=== PATIENT | female | born 2000 | race Caucasian/White ===

== ENCOUNTER 2020-12-14 16:45 | Emergency (ER) | payer SELFPAY ==
[2020-12-14 17:33] VITALS: TEMP 98.6; BMI 24.6
[2020-12-14 20:38] LABS: BASO % 0.4 % (0-2.0); EOS % 0.7 % (0-4.5); HEMATOCRIT 41.3 % (32.4-45.2); HEMOGLOBIN 13.9 GM/dL (10.7-15.3); MCH 30.2 pg (25.7-33.7); MCHC 33.5 g/dl (32.0-36.0); MEAN CELL VOLUME 90.1 fl (80-96); MEAN PLT VOLUME 7.5 fl (7.5-11.1); MONO % 6.9 % (3.8-10.2); PLATELET COUNT 394 K/MM3 (134-434); RBC 4.59 M/mm3 (3.60-5.2); RDW 13.7 % (11.6-15.6); WHITE BLOOD COUNT 8.8 K/mm3 (4.0-10.0)
[2020-12-14 20:56] LABS: POTASSIUM 4.2 mmol/L (3.5-5.1)
[2020-12-14 20:58] LABS: CALCIUM 9.4 mg/dL (8.5-10.1)
[2020-12-14 20:59] LABS: ALBUMIN 4.1 g/dl (3.4-5.0); BLOOD UREA NITROGEN 9.1 mg/dL (7-18)
[2020-12-14 21:01] LABS: CREATININE 0.7 mg/dL (0.55-1.3)
[2020-12-14 21:04] LABS: BILIRUBIN,TOTAL 0.4 mg/dL (0.2-1)
[2020-12-14] MEDS ORDERED: KETOROLAC TROMETHAMINE 30 MG/1 ML VIAL IM ONE (21:13)
[2020-12-14] MEDS ORDERED: KETOROLAC TROMETHAMINE 30 MG/1 ML VIAL ONE (22:04)
[2020-12-14 22:21] VITALS: BP 101/58; PULSE 71
[2020-12-14 22:48] LABS: URINE APPEARANCE Clear; URINE BILIRUBIN Negative (NEGATIVE); URINE COLOR Yellow; URINE GLUCOSE (UA) Negative (NEGATIVE); URINE KETONE Trace (NEGATIVE); URINE LEUK ESTERASE Negative (NEGATIVE); URINE NITRITE Negative (NEGATIVE); URINE PROTEIN Negative (NEGATIVE); URINE UROBILINOGEN 0.2 mg/dL (0.2-1.0)
[2020-12-14 23:04] LABS: EPI CELLS 11.3 /uL (0-25.1); HYALINE CASTS 1.28 /uL (0-3.1); URINE BACTERIA 171.9 /uL (0-1359); URINE RBC 193.8 /uL (0-23.9); URINE WBC 10.6 /uL (0-25.8)
== END 2020-12-14 22:20 | disposition home or self-care (01) ==
LOC: JER 16:45
PROC: 3E0233Z Introduction of Anti-inflammatory into Muscle, Percutaneous Approach (ICD-10-PCS; principal; 2020-12-14)
DX: N94.6 Dysmenorrhea, unspecified (principal)
CPT/HCPCS: 36415; 76830-TC; 80053; 81003; 84702; 85025; 86850; 86900; 86901; 87086; 99284-25

== ENCOUNTER 2022-11-25 10:54 | Emergency (ER) | payer SELFPAY ==
[2022-11-25 11:05] VITALS: BP 109/68; PULSE 94; RESP 20; TEMP 98.2; BMI 21.4
[2022-11-25] MEDS ORDERED: ACETAMINOPHEN 500 MG TABLET (FP) PO ONE (12:43)
[2022-11-25 13:55] LABS: BASO % 1.2 % (0-2.0); EOS % 0.4 % (0-4.5); HEMATOCRIT 40.5 % (32.4-45.2); HEMOGLOBIN 13.7 GM/dL (10.7-15.3); LYMPH % 23.1 % (8-40); MCHC 33.7 g/dl (32.0-36.0); MEAN CELL VOLUME 89.1 fl (80-96); MEAN PLT VOLUME 7.6 fl (7.5-11.1); MONO % 5.9 % (3.8-10.2); NEUT % 69.4 % (42.8-82.8); PLATELET COUNT 368 10^3/uL (134-434); RBC 4.55 M/mm3 (3.60-5.2); RDW 13.2 % (11.6-15.6); WHITE BLOOD COUNT 7.5 K/mm3 (4.0-10.0)
[2022-11-25] MEDS ORDERED: ACETAMINOPHEN 500 MG TABLET (FP) ONE (14:27)
[2022-11-25 14:40] LABS: CALCIUM 9.2 mg/dL (8.5-10.1)
[2022-11-25 14:41] LABS: ALBUMIN 3.9 g/dl (3.4-5.0)
[2022-11-25 14:45] LABS: BILIRUBIN,TOTAL 0.6 mg/dL (0.2-1); TOT PROT 7.9 g/dl (6.4-8.2)
[2022-11-25 14:52] LABS: CREATININE 0.7 mg/dL (0.55-1.3)
[2022-11-25 16:46] LABS: PH,URINE 5.5 (5.0-8.0); URINE APPEARANCE CLEAR; URINE BILIRUBIN NEGATIVE (NEGATIVE); URINE COLOR YELLOW; URINE GLUCOSE (UA) NEGATIVE (NEGATIVE); URINE KETONE TRACE (NEGATIVE); URINE LEUK ESTERASE NEGATIVE (NEGATIVE); URINE NITRITE NEGATIVE (NEGATIVE); URINE PROTEIN NEGATIVE (NEGATIVE); URINE UROBILINOGEN 0.2 mg/dL (0.2-1.0)
== END 2022-11-25 16:49 | disposition home or self-care (01) ==
LOC: JER 10:54
DX: O26.891 Other specified pregnancy related conditions, first trimester (principal); R10.9 Unspecified abdominal pain; Z3A.01 Less than 8 weeks gestation of pregnancy
CPT/HCPCS: 36415; 76817-TC; 80053; 81003; 84702; 84703; 85025; 86850; 86900; 86901; 87086; 99284-25

== ENCOUNTER 2024-09-13 11:33 | Inpatient (IN) | payer OTHER ==
[2024-09-13] MEDS ORDERED: BETAMET ACET/BETAMET NA PH 30 MG/5 ML VIAL ONE (12:03)
[2024-09-13] MEDS: BETAMET ACET/BETAMET NA PH 30 MG/5 ML VIAL IM ONE (12:05)
[2024-09-13] MEDS: ELECTROLYTE-148 SOLN 1,000 ML IV SCH (12:05)
[2024-09-13] MEDS ORDERED: MAGNESIUM 4GM/H20 - 4 GM/100 ML IVPB IVPB ONE ×2 (12:06→12:08)
[2024-09-13] MEDS ORDERED: AMPICILLIN SODIUM 2 GM VIAL ONE (12:06)
[2024-09-13] MEDS ORDERED: SODIUM CHLORIDE 100 ML IVPB ONE ×2 (12:06→16:05)
[2024-09-13] MEDS: AMPICILLIN - 2 GM in SODIUM CHLORIDE 100 ML IVPB ONE (12:10)
[2024-09-13] MEDS: MAGNESIUM 4GM/H20 - 4 GM/100 ML IVPB IVPB SCH (12:10)
[2024-09-13 12:32] VITALS: BMI 30.9
[2024-09-13] MEDS: MAGNESIUM SULFATE 20GM/500ML - 20 GM/500 ML INFUS.BAG IVPB SCH (12:40)
[2024-09-13 12:45] LABS: BASO % 0.3 % (0-2.0); EOS % 0.1 % (0-4.5); HEMATOCRIT 30.7 % (32.4-45.2); HEMOGLOBIN 9.9 GM/dL (10.7-15.3); LYMPH % 23.9 % (8-40); MCHC 32.1 g/dl (32.0-36.0); MEAN CELL VOLUME 71.8 fl (80-96); MEAN PLT VOLUME 8.9 fl (7.5-11.1); MONO % 5.8 % (3.8-10.2); NEUT % 69.9 % (42.8-82.8); PLATELET COUNT 336 10^3/uL (134-434); RBC 4.28 M/mm3 (3.60-5.2); RDW 16.3 % (11.6-15.6); WHITE BLOOD COUNT 10.9 K/mm3 (4.0-10.0)
[2024-09-13 12:52] LABS: INR 0.85 (0.83-1.09); PROTHROMBIN TIME (PATIENT) 9.8 SEC (9.7-13.0)
[2024-09-13 12:55] LABS: ACTIVATED PTT 24.8 SECONDS (25.2-36.5)
[2024-09-13 13:14] LABS: POTASSIUM 4.1 mmol/L (3.5-5.1)
[2024-09-13 13:18] LABS: ALBUMIN 2.7 g/dl (3.4-5.0); BLOOD UREA NITROGEN 9.6 mg/dL (7-18); CALCIUM 8.8 mg/dL (8.5-10.1)
[2024-09-13 13:22] LABS: CREATININE 0.6 mg/dL (0.55-1.3)
[2024-09-13 13:23] LABS: BILIRUBIN,TOTAL 0.4 mg/dL (0.2-1); TOT PROT 6.8 g/dl (6.4-8.2)
[2024-09-13] MEDS ORDERED: BUTORPHANOL TARTRATE 1 MG/ML VIAL ONE (13:25)
[2024-09-13] MEDS ORDERED: PROMETHAZINE HCL 25 MG/1 ML VIAL ONE (13:26)
[2024-09-13] MEDS: PROMETHAZINE HCL 25 MG/1 ML VIAL IVPB ONE (13:30)
[2024-09-13] MEDS: BUTORPHANOL TARTRATE 1 MG/ML VIAL IVPUSH ONE (13:30)
[2024-09-13] MEDS ORDERED: OXYTOCIN 20 UNITS in 0.9% NS 20 UNIT/1,000 ML INFUS.BAG IV ONE ×2 (13:52→22:24)
[2024-09-13 14:11] LABS: HIV INTERPRETATION NEGATIVE (NEGATIVE)
[2024-09-13] MEDS ORDERED: AMPICILLIN SODIUM 1 GM VIAL ONE (16:05)
[2024-09-13] MEDS: AMPICILLIN - 1 GM in SODIUM CHLORIDE 100 ML IVPB SCH (16:10)
[2024-09-13] MEDS: CITRIC ACID/SODIUM CITRATE 30 ML UNIT-DOSE CUP PO ONE (18:15)
[2024-09-13] MEDS ORDERED: FENTANYL CITRATE/PF 50 MCG/ML VIAL ONE (18:32)
[2024-09-13] MEDS ORDERED: morphine SULFATE/PF 1 MG/2 ML (2cc Syringe - QUVA) ONE (18:32)
[2024-09-13] MEDS ORDERED: ceFAZolin SODIUM 1 GM VIAL ONE (18:42)
[2024-09-13] MEDS ORDERED: PROPOFOL 20 ML ONE (19:04)
[2024-09-13] MEDS ORDERED: SUCCINYLCHOLINE CHLORIDE 200 MG/10 ML SYRINGE ONE (19:04)
[2024-09-13 19:40] LABS: CORD BASE EXCESS -3.9 mmol/L (0-2); CORD HCO3 21.7 mmHg (20-29); CORD PCO2 41.6 mmHg (30-78); CORD pH 7.336 (7.14-7.44)
[2024-09-13] MEDS ORDERED: oxyCODONE HCL 5 MG TABLET PO PRN (21:43)
[2024-09-13] MEDS ORDERED: ONDANSETRON 4 MG/2 ML VIAL IVPB PRN (21:43)
[2024-09-13] MEDS ORDERED: ACETAMINOPHEN INJECTION 100 ML ONE (22:28)
[2024-09-13] MEDS: OXYTOCIN 20 UNITS in 0.9% NS 20 UNIT/1,000 ML INFUS.BAG IV SCH (22:30)
[2024-09-13] MEDS: SENNOSIDES/DOCUSATE COMBO (SENNA PLUS) TABLET (UD) PO SCH (22:45)
[2024-09-13] MEDS: ACETAMINOPHEN 1000 MG/100 ML BAG IVPB SCH (22:55)
[2024-09-14] MEDS: IBUPROFEN 800 MG/8 ML IJ IVPB SCH (01:05)
[2024-09-14] MEDS: CEFAZOLIN 1 GM in DEXTROSE 5%-WATER - 50 ML IVPB SCH (01:06)
[2024-09-14 08:03] LABS: BASO % 0.1 % (0-2.0); HEMATOCRIT 26.4 % (32.4-45.2); HEMOGLOBIN 8.4 GM/dL (10.7-15.3); LYMPH % 12.8 % (8-40); MCH 22.9 pg (25.7-33.7); MCHC 31.9 g/dl (32.0-36.0); MEAN CELL VOLUME 71.8 fl (80-96); MEAN PLT VOLUME 8.9 fl (7.5-11.1); MONO % 5.2 % (3.8-10.2); NEUT % 81.9 % (42.8-82.8); PLATELET COUNT 308 10^3/uL (134-434); RBC 3.68 M/mm3 (3.60-5.2); RDW 16.4 % (11.6-15.6); WHITE BLOOD COUNT 14.8 K/mm3 (4.0-10.0)
[2024-09-14] MEDS: PRENATAL VITAMINS W/ FOLIC ACID TABLET (FP) PO SCH (09:00)
[2024-09-14] MEDS: IBUPROFEN 600 MG TABLET (FP) PO PRN (13:06)
[2024-09-14] MEDS: ACETAMINOPHEN 325 MG TABLET (FP) PO SCH (16:32)
[2024-09-14] MEDS ORDERED: BISACODYL 10 MG SUPP.RECT RC PRN (21:44)
[2024-09-14] MEDS: SIMETHICONE 80 MG TAB.CHEW (FP) PO PRN (22:08)
[2024-09-15 10:12] VITALS: BP 119/66; PULSE 58; RESP 17; TEMP 98.3
== END 2024-09-15 16:50 | disposition home or self-care (01) | DRG 540 ==
LOC: JLDR 11:33 → J3W 22:45
PROVIDERS: ADMIT Specialist; ATTEND Specialist
PROC: 10D00Z1 Extraction of Products of Conception, Low, Open Approach (ICD-10-PCS; principal; 2024-09-13)
DX: O60.23X0 Term delivery with preterm labor, third trimester, not applicable or unspecified (principal); O34.219 Maternal care for unspecified type scar from previous cesarean delivery; Z3A.34 34 weeks gestation of pregnancy; Z37.0 Single live birth
CPT/HCPCS: 36415; 36600; 59409; 80048; 80053; 82803; 83735; 85025; 85027; 85610; 85730; 86780; 86850; 86900; 86901; 87389; 88304-TC; 88307-TC; 96372; J0131